=== PATIENT | female | born 2005 | race Two or more races ===

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

== ENCOUNTER 2025-05-24 20:01 | Emergency (ER) | payer OTHER ==
[~2025-05-24] VITALS: Ht 170.2 cm; Wt 63.5 kg
[2025-05-24] MEDS ORDERED: CEFTRIAXONE SODIUM 1,000 MG VIAL IM ONE (21:00)
[2025-05-24 23:10] LABS: BASO % 0.4 % (0.1-1.2); EOS # 0.55 (0.04-0.54); EOS % 5.8 % (0.7-7.0); LYMPH # 0.99 (1.18-3.74); LYMPH % 10.4 % (19.3-53.1); MEAN PLATELET VOLUME 10.60 fl (9.4-12.4); MONO # 1.04 (0.24-0.82); MONO % 10.9 % (4.7-12.5); NEUT # 6.93 (1.56-6.13); NEUT % 72.4 % (34.0-71.1); RED CELL DISTRIBUTION WIDTH 13.0 % (11.6-14.4)
[2025-05-24 23:17] LABS: ERYTHROCYTE SEDIMENTATION RATE 10 mm/hr (0-20)
[2025-05-24 23:32] LABS: ALT/SGPT 49.0 U/L (12-78); AST/SGOT 34.0 U/L (15-37); BILIRUBIN TOTAL 0.32 mg/dL (0.3-1.2); BUN CREA RATIO 16.0 (7.0-25.0); CREATININE SERUM 0.76 mg/dL (0.55-1.02); GFR 98.04; GLOBULINA 3.3 G/DL (2.4-3.5); GLUCOSE FASTING 89.0 mg/dL (65-100); OSMOLALITY SERUM 280.0 MOSM/KG (275-295)
[2025-05-24] MEDS ORDERED: CEPHALEXIN500 MG PO (23:49)
[2025-05-24] MEDS ORDERED: ACETAMINOPHEN500 M1 PO (23:49)
== END 2025-05-25 02:48 | disposition home or self-care (01) ==
LOC: ER 20:02
PROVIDERS: Preventive Medicine Public Health & General Preventive Medicine
DX: L02.416 Cutaneous abscess of left lower limb (principal); Z87.2 Personal history of diseases of the skin and subcutaneous tissue